=== PATIENT | male | born 1950 | race Caucasian/White ===

== ENCOUNTER → 2018-07-05 18:02 | Outpatient (REF) | payer MEDICARE, SELFPAY ==
[2018-07-05 20:12] LABS: Alanine Aminotransferase 38 IU/L (21-72); Albumin 4.6 g/dL (3.5-5.0); Albumin Globulin Ratio 1.4 (1.0-2.8); Alkaline Phosphatase 97 U/L (38-126); Aspartate Aminotransferase 30 IU/L (17-59); BUN Creatinine Ratio 23.8 (6-22); Bilirubin Total 0.6 mg/dL (0.2-1.3); Blood Urea Nitrogen 19 mg/dL (9-20); Calcium 9.5 mg/dL (8.4-10.2); Carbon Dioxide 26 mmol/L (22-32); Chloride 104 mmol/L (98-107); Cholesterol 181 mg/dL (140-199); Estimated Glomerular Filt Rate > 60.0 mL/min (>60); Globulin 3.3 g/dL (1.7-4.1); Glucose 102 mg/dL (80-110); HDL Cholesterol 45 mg/dL (40-60); HEMOLYSIS 31 (0-50); Hematocrit 48.6 % (41-53); Hemoglobin 15.8 g/dL (13.5-17.5); LDL Cholesterol Calculated 108 mg/dL (<100); Mean Corpuscular HGB Conc 32.5 % (30-36); Mean Corpuscular Hemoglobin 31.5 PG (26-34); Mean Corpuscular Volume 96.9 fL (80-100); Platelet Count 200 X10^3/uL (150-400); Red Blood Cell Count 5.01 X10^6/uL (4.5-5.9); Red Cell Distribution Width 14.3 % (11.6-14.8); Sodium 142 mmol/L (137-145); Total Protein 7.9 g/dL (6.3-8.2); Triglycerides 139 mg/dL (35-150); White Blood Cell Count 8.1 X10^3/uL (4.5-11.0)
[2018-07-05 20:14] LABS: Potassium 5.2 mmol/L (3.4-5.1)
[2018-07-05 20:36] LABS: Hemoglobin A1C% w Est Avg Glu 5.9 % (4.0-6.0)
[2018-07-05 20:41] LABS: Prostate Specific Antigen 0.957 ng/mL (0.10-4.00)
[2018-07-05 20:46] LABS: Add Manual Diff / Slide Review YES
[2018-07-05 21:04] LABS: Neutrophils Absolute Manual 3807 /uL (3000-5900); Total Cells Counted 100
[2018-07-05 21:10] LABS: Hypochromasia 1+; Macrocytosis 1+; Poikilocytosis 1+
[2018-07-05 21:11] LABS: Hypersegmented Neutrophils 1+
[2018-07-05 21:13] LABS: Smudge Cells 1+
== END ==
LOC: LAB 18:02
PROVIDERS: Visit Provider Family Medicine Geriatric Medicine
DX: E78.5 Hyperlipidemia, unspecified (principal); Z00.00 Encounter for general adult medical examination without abnormal findings; Z12.5 Encounter for screening for malignant neoplasm of prostate; R73.01 Impaired fasting glucose; I10 Essential (primary) hypertension
CPT/HCPCS: 36415; 80053; 80061; 83036; 84153; 85025

== ENCOUNTER → 2018-07-12 19:00 | Outpatient (REF) | payer MEDICARE, SELFPAY ==
[2018-07-12 19:23] LABS: Add Manual Diff / Slide Review NO; Basophils Absolute Auto 100 /uL (0-100); Basophils Percent Auto 0.8 % (0-2); Eosinophils Absolute Auto 400 /uL (0-450); Eosinophils Percent Auto 5.2 % (2-4); Hematocrit 45.7 % (41-53); Hemoglobin 15.3 g/dL (13.5-17.5); Lymphocytes Absolute Auto 1900 /uL (1100-4500); Lymphocytes Percent Auto 27.2 % (25-40); Mean Corpuscular HGB Conc 33.4 % (30-36); Mean Corpuscular Volume 95.8 fL (80-100); Monocytes Absolute Auto 700 /uL (0-900); Monocytes Percent Auto 9.9 % (3-14); Neutrophils Absolute Auto 4000 /uL (1500-7000); Neutrophils Percent Auto 56.9 % (50-75); Platelet Count 215 X10^3/uL (150-400); Red Blood Cell Count 4.77 X10^6/uL (4.5-5.9); Red Cell Distribution Width 14.5 % (11.6-14.8); White Blood Cell Count 7.1 X10^3/uL (4.5-11.0)
[2018-07-12 19:34] LABS: Blood Urea Nitrogen 20 mg/dL (9-20); Calcium 9.4 mg/dL (8.4-10.2); Carbon Dioxide 28 mmol/L (22-32); Chloride 100 mmol/L (98-107); Estimated Glomerular Filt Rate > 60.0 mL/min (>60); Glucose 97 mg/dL (80-110); HEMOLYSIS 30 (0-50); Potassium 4.8 mmol/L (3.4-5.1); Sodium 140 mmol/L (137-145)
== END ==
LOC: LAB 19:00
PROVIDERS: Visit Provider Family Medicine Geriatric Medicine
DX: E87.5 Hyperkalemia (principal)
CPT/HCPCS: 36415; 80048; 85025

== ENCOUNTER 2023-01-05 07:27 | Emergency (ER) | payer MEDICARE, OTHER, SELFPAY ==
[2023-01-05] VITALS (14 sets, daily range): BP systolic 153–185; BP diastolic 72–99; PULSE 54–67; RESP 15–19; TEMP 36.5; O2SAT 93–98; BMI 30.5
--- NOTE | 2023-01-05 07:36 | DI.RAD.S_ITS ---
PROCEDURE: XR CHEST 1V INDICATIONS: chest pain, Had inspire placed. TECHNIQUE: One view of the chest was acquired. COMPARISON: None. FINDINGS: Surgical changes and devices: A stimulator device is present over the right chest wall with leads leading across the right side of the neck Lungs and pleura: Lungs are clear. No pleural effusions or pneumothorax. Mediastinum: Mediastinal contours appear normal. Heart size is normal. Bones and chest wall: No suspicious bony lesions. Overlying soft tissues appear unremarkable. IMPRESSION: No acute cardiopulmonary abnormality. Dictated by: Charly Arteaga M.D. on 01/05/2023 at 8:23 Approved by: Charly Arteaga M.D. on 01/05/2023 at 8:25
--- NOTE | 2023-01-05 07:42 | ED.CHESTPAIN ---
HPI - Chest Pain General Chief Complaint: Chest Pain Stated Complaint: post op 12/25/swelling in neck and chest Time Seen by Provider: 01/05/23 07:35 Mode of arrival: Family Vehicle Limitations: no limitations History of Present Illness HPI narrative: This is a 72-year-old male with history of atrial fibrillation with prior cardioversion and ablation on Eliquis and aspirin, who has hypertension, dyslipidemia who had an inspire device implanted on 12/25/2022 with [facility] in [place] with Dr. Deepak Moran. Patient states that he has been doing well this morning he took a shower had a cup of coffee and states he noticed that his area were hit his voices had a sudden increase in swelling and pressure that tracks up towards his neck. He has some ecchymosis which has not changed by his neck. Patient states it is not particularly painful more of a pressure. He states it does not feel like it is still expanding but expanded pretty quickly. He states it was after he had shower this morning. He states he did not feel like he lift or move his arms differently than he normally would but he did washes hair and have his arms above his head. Patient states no heavy lifting or other movements he was not supposed to perform. He denies fevers or chills. Has chest discomfort no shortness of breath, he does not feel like his airway is being impinged. He states he was sweaty for about 20 minutes. When this happened. Patient denies any syncope. No nausea no vomiting, no diarrhea constipation. No urinary symptoms. Patient was planning on going to [facility] for his follow-up appointment today at 11:00 a.m.. Patient lives on [address] and took the [place] over. He is on Eliquis twice daily, lisinopril, amlodipine, carvedilol, atorvastatin, aspirin 81 mg, magnesium and lines main. He notes he had a prior ablation and cardioversion for AFib in the 2021 has been in sinus rhythm since then. Patient states he has been doing well otherwise he was told to hold his anticoagulation before surgery and restarted it 1 or 2 days afterwards. He states he is allergic to bee stings no known drug allergies. No tobacco, 2 or 3 alcoholic drinks nightly, no illicit. Related Data Allergies Allergy/AdvReac Type Severity Reaction Status Date / Time No Known Drug Allergies Allergy Verified 01/05/23 07:40 Review of Systems Review of Systems ROS Unobtainable: All systems reviewed & are unremarkable except as noted in HPI and below Patient History Social History Smoking Status: Former smoker Smoking Status: Former smoker alcohol intake frequency: 0-2 drinks per day Alcohol type: wine Substance Use Type: does not use Exam Narrative Exam Narrative: GENERAL: Alert and oriented x three, male in mild distress. HEENT: Head normocephalic, atraumatic, EOMI, pupils reactive, face symmetric, moist mucous membranes NECK: Supple, full range of motion, patient has some mild swelling up into his neck, no subcutaneous emphysema. There is an area of about 4 x 2 cm of ecchymosis which is soft. Patient has full range of motion, no stridor, no hoarseness. CARDIOVASCULAR: Regular rate and rhythm without murmurs, rubs or gallops. Patient's incision is clean dry and intact there is a scant amount of serosanguineous drainage and significant amount of swelling over the right pectoral muscle in the region. It is very hard and full. No subcutaneous emphysema is appreciated. RESPIRATORY: Breath sounds equal bilaterally, no wheezes rales or rhonchi. ABDOMEN: Soft, nontender. Normoactive bowel sounds all 4 quadrants. No guarding or rebound, rigidity, no mass : No CVA tenderness EXTREMITIES: Normal range of motion, no clubbing or edema. Neurovascularly intact NEUROLOGICAL: Cranial nerves II through XII grossly intact. Moving all extremities SKIN: Warm, dry, no petechiae, no rashes or lesions. Initial Vital Signs Initial Vital Signs: Vital Signs Temperature 97.7 F 01/05/23 07:37 Pulse Rate 61 01/05/23 07:37 Respiratory Rate 16 01/05/23 07:37 Blood Pressure 183/99 H 01/05/23 07:37 Pulse Oximetry 97 01/05/23 07:37 Oxygen Delivery Method Room Air 01/05/23 07:37 Course Orders Ordered: Discontinued Medications Sodium Chloride (Normal Saline 0.9%) 1,000 mls @ 125 mls/hr IV CONT OWEN Last Infusion: 01/05/23 12:16 Dose: 125 mls/hr Documented By: Admin: 01/05/23 11:48 Dose: 125 mls/hr Documented By: [facility] Vital Signs Vital signs: Vital Signs - 8 hr 01/05/23 11:00 01/05/23 11:30 01/05/23 11:52 Pulse Rate 54 L 58 L 63 Respiratory Rate 18 17 16 Blood Pressure Pulse Oximetry 95 93 98 Oxygen Delivery Method Room Air 01/05/23 11:52 01/05/23 12:00 01/05/23 12:00 Pulse Rate 63 Respiratory Rate 17 Blood Pressure 185/79 H 168/81 H Pulse Oximetry 96 Oxygen Delivery Method MDM - Chest Pain Lab Data 01/05/23 08:00 01/05/23 07:36 Labs: Lab Results 01/05/23 01/05/23 01/05/23 Range/Units 07:36 08:00 08:00 WBC 13.9 H (4.5-11.0) X10^3/uL RBC 4.22 L (4.5-5.9) X10^6/uL Hgb 13.5 (13.5-17.5) g/dL Hct 40.4 L (41-53) % MCV 95.7 (80-100) fL MCH 32.0 (26-34) PG MCHC 33.4 (30-36) % RDW 14.6 (11.6-14.8) % Plt Count 221 (150-400) X10^3/uL Neut % (Auto) 76.4 H (50-75) % Lymph % (Auto) 13.4 L (25-40) % [place] % (Auto) 7.0 (3-14) % Eos % (Auto) 2.7 (2-4) % Baso % (Auto) 0.5 (0-2) % Neut # (Auto) 49444 H (7686-4286) /uL Lymph # (Auto) 1900 (1641-6295) /uL [place] # (Auto) 1000 H (0-900) /uL Eos # (Auto) 400 (0-450) /uL Baso # (Auto) 100 (0-100) /uL PT 17.3 H (10.1-12.7) SECONDS INR 1.5 H (0.9-1.3) APTT 36 (26-36) SECONDS Sodium 134 L (137-145) mmol/L Potassium 4.7 (3.4-5.1) mmol/L Chloride 102 (98-107) mmol/L Carbon Dioxide 24 (22-32) mmol/L BUN 16 (9-20) mg/dL Creatinine 0.89 (0.66-1.25) mg/dL Estimated GFR > 60 (>60) mL/min BUN/Creatinine Ratio 18.0 (6-22) Glucose 153 H (80-110) mg/dL Lactate (0.7-2.1) mmol/L Calcium 8.9 (8.4-10.2) mg/dL Total Bilirubin 0.9 (0.2-1.3) mg/dL AST 30 (17-59) IU/L ALT 32 (<50) IU/L Alkaline Phosphatase 111 (38-126) U/L Total Creatine Kinase 78 (55-170) U/L Troponin I < 0.012 (0.01-0.034) ng/mL NT-Pro-B Natriuret Pep 123 (<125) pg/mL Total Protein 7.6 (6.3-8.2) g/dL Albumin 4.3 (3.5-5.0) g/dL Globulin 3.3 (1.7-4.1) g/dL Albumin/Globulin Ratio 1.3 (1.0-2.8) Lipase 86 (23-300) U/L Procalcitonin 0.05 (<0.5) ng/mL Blood Type Antibody Screen 01/05/23 01/05/23 Range/Units 08:00 08:10 WBC (4.5-11.0) X10^3/uL RBC (4.5-5.9) X10^6/uL Hgb (13.5-17.5) g/dL Hct (41-53) % MCV (80-100) fL MCH (26-34) PG MCHC (30-36) % RDW (11.6-14.8) % Plt Count (150-400) X10^3/uL Neut % (Auto) (50-75) % Lymph % (Auto) (25-40) % [place] % (Auto) (3-14) % Eos % (Auto) (2-4) % Baso % (Auto) (0-2) % Neut # (Auto) (5213-3455) /uL Lymph # (Auto) (4324-4874) /uL [place] # (Auto) (0-900) /uL Eos # (Auto) (0-450) /uL Baso # (Auto) (0-100) /uL PT (10.1-12.7) SECONDS INR (0.9-1.3) APTT (26-36) SECONDS Sodium (137-145) mmol/L Potassium (3.4-5.1) mmol/L Chloride (98-107) mmol/L Carbon Dioxide (22-32) mmol/L BUN (9-20) mg/dL Creatinine (0.66-1.25) mg/dL Estimated GFR (>60) mL/min BUN/Creatinine Ratio (6-22) Glucose (80-110) mg/dL Lactate 1.5 (0.7-2.1) mmol/L Calcium (8.4-10.2) mg/dL Total Bilirubin (0.2-1.3) mg/dL AST (17-59) IU/L ALT (<50) IU/L Alkaline Phosphatase (38-126) U/L Total Creatine Kinase (55-170) U/L Troponin I (0.01-0.034) ng/mL NT-Pro-B Natriuret Pep (<125) pg/mL Total Protein (6.3-8.2) g/dL Albumin (3.5-5.0) g/dL Globulin (1.7-4.1) g/dL Albumin/Globulin Ratio (1.0-2.8) Lipase (23-300) U/L Procalcitonin (<0.5) ng/mL Blood Type O Positive Antibody Screen Negative Imaging Data Chest x-ray: Radiologist's Impression: [address] [address] XRay Report Signed Patient: Deepak Mckay MR#: [id number] : 1950 Acct:[id number] Age/Sex: 72 / M Date of Service: 01/05/23 Loc: ED Accession Number: [id number] ?? Procedure: XR chest 1V Ordering Provider: Karen Eller D.O. PROCEDURE:? XR CHEST 1V ? INDICATIONS:? chest pain, Had inspire placed. ? TECHNIQUE:? One view of the chest was acquired.? ? COMPARISON:? None. ? FINDINGS:? ? Surgical changes and devices:? A stimulator device is present over the right chest wall with leads leading across the right side of the neck ? Lungs and pleura:? Lungs are clear.? No pleural effusions or pneumothorax.? ? Mediastinum:? Mediastinal contours appear normal.? Heart size is normal.? ? Bones and chest wall:? No suspicious bony lesions.? Overlying soft tissues appear unremarkable.? ? ? IMPRESSION:? No acute cardiopulmonary abnormality. ? ? ? Dictated by: Charly Arteaga M.D. on 01/05/2023 at 8:23 ? ? Approved by: Charly Arteaga M.D. on 01/05/2023 at 8:25?? ECG Data Attestation: I personally reviewed and interpreted this ECG as follows: Prior ECG tracings: not available for review Interpretation: Sinus rhythm rate of 61 GA 166 QRS 82 and QTC 448. No acute ST elevation or depression noted. No priors for comparison. MDM Narrative Medical decision making narrative: 72-year-old male who has significant swelling over his right pectoral after having inspire device implanted on 12/25, patient does have a little bit of swelling tracking up towards his neck. There is a little bit of serosanguineous drainage he states it is suddenly occurred this morning after he had a shower I suspect as it is quite hard and full without any subcutaneous emphysema palpable that he is having bleeding underneath he is on aspirin Eliquis daily. He states it is not continuing to expand. Patient had labs show , chest x-ray, EKG obtained shows no acute change, patient's chest x-ray shows some vague haziness, no subcutaneous emphysema noted on prelim. Waiting Radiology read. CT chest with contrast and soft tissue neck with contrast ordered shows 12 x will by 4 cm mass under the right pectus consistent with large hematoma, no pneumo or hemothorax it is tracking up towards the neck, on soft tissue neck there is stranding enlargement of the right submandibular gland likely secondary to hematoma. No active extravasation I did review images with Radiology they do not appreciate any extravasation either. Patient states does not appear to be growing larger in size, he does have sand bag in place on recheck appears to be the same size he does not appreciate any airway involvement. Discussed with patient would like him to be seen by his surgical team that is quite a large hematoma. Patient is supposed to have appointment 11:00 a.m. today with his surgeons. Paged out patient's surgical team. Spoke with Dr. Moran, ENT accepts for transfer. Asks to continue to hold patients anticoagulant. Asks for ED to ED transfer for evaluation. Patient felt not appropriate to go to office by private auto. Spoke with ED attending, Dr. English, who accepts for ED to ED transfer to [facility]. Can go ahead and arrange transport per coordinator. On several checks patient has not appeared to have persistent increasing amount. Discharge Plan Departure Patient Disposition: [facility] Clinical Impression: Post-op bleeding, Hematoma of right chest wall Referrals: Jayson Allen MD [Primary Care Provider] -
--- NOTE | 2023-01-05 08:02 | DI.CT.S_ITS ---
PROCEDURE: CT SOFT TISSUE NECK W CON INDICATIONS: sudden swelling chest/neck, s/p inspire device 12/25. TECHNIQUE: After the administration of intravenous contrast, 3.0 mm axial sections acquired from the sella to the aortic arch. Additional oblique axial 3.0 mm sections acquired through the pharynx. 3 mm thick coronal and sagittal reformats were generated. For radiation dose reduction, the following was used: automated exposure control. COMPARISON: None. FINDINGS: Image quality: Excellent. Lymph nodes: No enlarged lymph nodes seen throughout the neck. Vessels: Visualized vasculature appears patent. Neck spaces: The oropharynx, nasopharynx, and pharynx demonstrate no mucosal lesions. The vocal cords, false vocal cords, pyriform sinuses, epiglottis, vallecula, and tongue base all appear normal. Extramucosal spaces appear unremarkable. Glands: The parotid and submandibular glands appear normal. Thyroid gland is normal. Miscellaneous: There is an implanted device in the right anterior chest with a metallic lead/wire extending into the right perimandibular area. There is stranding and enlargement of the right submandibular gland, which demonstrates heterogeneous attenuation and enhancement. Visualized brain and orbits appear normal. Lung apices appear clear. Superficial soft tissues appear normal. Bones: No suspicious bony lesions. Visualized sinuses and mastoids appear unremarkable. IMPRESSION: 1. An implant metallic surgical device is seen in the right anterior chest with a lead/wire extending to the right perimandibular area. There is stranding and enlargement of the right submandibular gland, most likely secondary to hematoma. A differential diagnosis is inflammatory or infectious process. Recommend clinical correlation. The appropriate position of the surgical device needs to be confirmed with the operating physician. 2. Please also see separate CT chest report. Dictated by: Rosario Funes M.D. on 01/05/2023 at 9:38 Approved by: Rosario Funes M.D. on 01/05/2023 at 9:46
--- NOTE | 2023-01-05 08:02 | DI.CT.S_ITS ---
PROCEDURE: CT CHEST W CON INDICATIONS: s/p inspire device 12/25, sudden swelling chest/neck TECHNIQUE: After the administration of intravenous contrast, 5 mm thick sections acquired from the pulmonary apices to the posterior costophrenic angles. 1 mm axial lung, 5 mm thick coronal and sagittal reformats and 7 mm axial MIP were acquired. For radiation dose reduction, the following was used: automated exposure control, adjustment of mA and/or kV according to patient size. COMPARISON: [facility], CR, XR CHEST 1V, 01/05/2023, 7:52. [facility], CT, CT SOFT TISSUE NECK W CON, 01/05/2023, 8:25. FINDINGS: Image quality: Excellent. Lungs and pleura: No acute air space opacities. No pleural effusions or pneumothorax. Central and peripheral airways are patent and normal in caliber. Mediastinum: Heart size is normal. No pericardial effusion. There is moderate coronary artery calcification. No mediastinal or hilar adenopathy by size criteria. Thoracic aorta and central pulmonary arteries are normal in size. Esophagus is normal in caliber. No hiatal hernia. Bones and chest wall: There is a metallic implanted device in the right anterior chest jaw area. Please was see separate CT neck report. There is 4.2 x 12.3 x 11.8 cm mass in the right chest wall under the right pectus, most likely a hematoma. There is no active contrast extravasation to suggest active bleeding at the time of scanning although the medial aspect of the mass is suboptimally visualized due to metallic artifacts. No suspicious bony lesions. No vertebral body compression fractures. No axillary or supraclavicular adenopathy by size criteria. Thyroid gland is normal. Abdomen: There is hepatic steatosis. A low-density cortical nodules in the superior pole of the right kidney are most likely renal cysts. Visualized upper abdominal solid organs appear normal. Upper abdominal bowel loops are normal in caliber. IMPRESSION: 1. A metallic device is seen in the right anterior chest wall. There is a 4.2 x 12.3 x 11.8 cm mass in the right chest wall under the right pectus, consistent with a large hematoma. No pneumothorax or hemothorax. 2. Please see separate neck CT report for findings in the right neck. The preliminary result was discussed with Dr. Eller. Dictated by: Rosario Funes M.D. on 01/05/2023 at 9:26 Approved by: Rosario Funes M.D. on 01/05/2023 at 9:49
--- NOTE | 2023-01-05 08:04 | PC.NURSE ---
Patient had Inspire device implanted on 12/25, reports recovery had been going fine until this morning. Patient noticed some swelling at site, significant swelling noted by time of arrival. Small amount of leaking noted at incision site. Patient also notes some swelling in his throat on right side. Speaking in full sentences and managing airway. Patient was enroute to [place] for follow up appointment.
[2023-01-05 08:08] LABS: Add Manual Diff / Slide Review NO; Basophils Absolute Auto 100 /uL (0-100); Basophils Percent Auto 0.5 % (0-2); Eosinophils Absolute Auto 400 /uL (0-450); Eosinophils Percent Auto 2.7 % (2-4); Hematocrit 40.4 % (41-53); Hemoglobin 13.5 g/dL (13.5-17.5); Lymphocytes Absolute Auto 1900 /uL (1100-4500); Lymphocytes Percent Auto 13.4 % (25-40); Mean Corpuscular HGB Conc 33.4 % (30-36); Mean Corpuscular Volume 95.7 fL (80-100); Monocytes Absolute Auto 1000 /uL (0-900); Neutrophils Absolute Auto 10600 /uL (1500-7000); Neutrophils Percent Auto 76.4 % (50-75); Platelet Count 221 X10^3/uL (150-400); Red Blood Cell Count 4.22 X10^6/uL (4.5-5.9); Red Cell Distribution Width 14.6 % (11.6-14.8); White Blood Cell Count 13.9 X10^3/uL (4.5-11.0)
[2023-01-05 08:16] LABS: INR 1.5 (0.9-1.3); Prothrombin Time 17.3 SECONDS (10.1-12.7)
[2023-01-05 08:17] LABS: Lactate (Lactic Acid) 1.5 mmol/L (0.7-2.1)
[2023-01-05 08:18] LABS: PTT Partial Thromboplastin Tim 36 SECONDS (26-36)
[2023-01-05 08:22] LABS: Alanine Aminotransferase 32 IU/L (<50); Albumin 4.3 g/dL (3.5-5.0); Albumin Globulin Ratio 1.3 (1.0-2.8); Alkaline Phosphatase 111 U/L (38-126); Aspartate Aminotransferase 30 IU/L (17-59); Bilirubin Total 0.9 mg/dL (0.2-1.3); Blood Urea Nitrogen 16 mg/dL (9-20); Calcium 8.9 mg/dL (8.4-10.2); Carbon Dioxide 24 mmol/L (22-32); Chloride 102 mmol/L (98-107); Creatine Kinase 78 U/L (55-170); Estimated Glomerular Filt Rate > 60 mL/min (>60); Globulin 3.3 g/dL (1.7-4.1); Glucose 153 mg/dL (80-110); HEMOLYSIS < 15 (0-50); Potassium 4.7 mmol/L (3.4-5.1); Sodium 134 mmol/L (137-145); Total Protein 7.6 g/dL (6.3-8.2)
[2023-01-05 08:33] LABS: Troponin I < 0.012 ng/mL (0.01-0.034)
[2023-01-05 08:40] LABS: Procalcitonin 0.05 ng/mL (<0.5)
[2023-01-05 09:08] LABS: Lipase 86 U/L (23-300)
[2023-01-05 09:38] LABS: NT-proBNP (BNP-Adult 18+) 123 pg/mL (<125)
[2023-01-05] MEDS: SODIUM CHLORIDE 0.9% 1,000 ML 125 ML IV (11:48)
== END 2023-01-05 12:16 | disposition short-term general hospital (02) ==
PROVIDERS: Emergency Provider Emergency Medicine; PCP Family Medicine
DX: L76.22 Postprocedural hemorrhage of skin and subcutaneous tissue following other procedure (principal); S20.211A Contusion of right front wall of thorax, initial encounter; R07.9 Chest pain, unspecified; M54.2 Cervicalgia
CPT/HCPCS: 70491; 71045; 71260; 80053; 82550; 83605; 83690; 83880; 84145; 84484; 85025; 85610; 85730; 86850; 86900; 86901; 87070; 87075; 87205; 93005; 93010; 99284